=== PATIENT | female | born 1960 | race Caucasian/White ===

== ENCOUNTER 2017-07-29 17:17 | Inpatient (IN) | payer BC ==
[2017-07-29 17:48] VITALS: BMI 45.1
[2017-07-29] MEDS ORDERED: Ondansetron HCl/PF 4 MG/2 ML Vial SLOW IVP PRN ×2 (17:58→22:31)
[2017-07-29] MEDS: D5 1/2 NS w/20 mEq KCL 1,000 ML IV SCH (18:07)
[2017-07-29] MEDS: Morphine 5 MG/ML SYRINGE SLOW IVP PRN ×3 (18:08→22:14)
[2017-07-29] MEDS ORDERED: diphenhydrAMINE 50 MG/ML VIAL IM/IV PRN ×2 (19:50→22:36)
[2017-07-29] MEDS ORDERED: FLU VACC QS2017-18 36 mo. & older 0.5 ML SYRINGE IM ONE (21:00)
[2017-07-29] MEDS ORDERED: Morphine 5 MG/ML SYRINGE SLOW IVP PRN ×2 (22:34→22:35)
[2017-07-30] MEDS ORDERED: Sodium Chloride 0.9% 10 ML ONE (02:00)
[2017-07-30] MEDS: Morphine 5 MG/ML SYRINGE SLOW IVP PRN ×6 (02:05→23:48)
[2017-07-30] MEDS: D5 1/2 NS w/20 mEq KCL 1,000 ML IV SCH ×3 (02:14→18:22)
--- NOTE | 2017-07-30 06:10 | HP ---
DATE OF ADMISSION: 07/29/2017 PRIMARY CARE PHYSICIAN: Dr. Pio Crawford. CHIEF COMPLAINT: Abdominal pain. HISTORY OF PRESENT ILLNESS: This is a 57-year-old female, long time patient of Dr. Pio Crawford who had an insidious onset of generalized abdominal pain starting yesterday. She had increasi ng anorexia due to the discomfort, but no nausea. She does note having some diarrhea during the latt er part of the week. Then last night, she had sudden onset of emesis when she thought she was going to go to the bathroom and have a bowel movement, but never really had any nausea. She denies any fev er or headache, then throughout this morning the abdominal pain became more severe and it was on the left side of her abdomen radiating towards the left upper back, which reminded her of her past pancre atitis attacks. She took herself to [facility] ER, they did a workup included a CT of the abdomen, lab work and an amylase and they could not do a lipase and they found it to be positive, diagnosed with p ancreatitis and contacted us for direct admit. This is her third episode of pancreatitis. She has h ad her gallbladder worked up, it has been negative. They only found a little bit of sludge, no stone s. She has had a HIDA scan, it has been negative. PAST MEDICAL HISTORY: Positive for pancreatitis 2 other times, history of hypertension, GERD, some anxiety, depression, and morbid obesity. PAST SURGICAL HISTORY: Failed lap band she had it placed, but then in 2013, she had it removed. She has had a vaginal hysterectomy with both ovaries were left intact. ALLERGIES: She has no known drug allergies. MEDICATIONS: She is on Protonix, metoprolol, Singulair, Lexapro and Xanax. FAMILY HISTORY: Noncontributory. SOCIAL HISTORY: She is . 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 She is a past smoker for more than 10 years ago. No alcohol use, no drug use. REVIEW OF SYSTEMS: She denies any fever or chills, or headaches. No changes in vision, no trouble c hewing or swallowing. She has had no chest pain or shortness of breath, no cough. She has had no na usea. She has had some diarrhea. She had the acute emesis starting in the middle of night and has h ad a total of three bouts of emesis. No hematemesis. She denies any melena or bright red blood per rectum in her stool, no dysuria or hematuria. She denies any paresis or paresthesias. No weakness. She also denies any auditory or visual hallucinations, no suicidal or homicidal ideations. PHYSICAL EXAMINATION: GENERAL: She is awake, slightly uncomfortable trying to switch positions, and she can tell her morph ine dose is wearing off at this time, but she is very cooperative and intelligent regarding her condi tion. VITAL SIGNS: Temperature 98.2, pulse 88, respirations 20-22, satting 97% on room air, BP was 125/60. HEENT: Pupils are equal, round, and reactive to light and accommodation. Extraocular movements are intact. Mucous membranes are moist. Sclerae are nonicteric. NECK: Supple, no JVD, no bruits. LUNGS: Clear to auscultation bilaterally, no rales, rhonchi or wheezes. HEART: S1, S2, with no rubs, murmurs, or gallops. ABDOMEN: Soft, obese, mild tender to palpation in the midepigastric area. No rebound or guarding. Bowel sounds are hypoactive. GENITOURINARY: Deferred. EXTREMITIES: She has good palpable pulses in all four extremities. DTRs are 2+ and equal. NEUROLOGIC: She is alert and oriented x4. Cranial nerves II-XII are equal and symmetrical. There a re no motor or sensory deficits appreciated. LABORATORY AND X-RAY FINDINGS: [facility] lipase which was 254 . She has labs that were done at [facility] which showed a white count 11, H&H is 13 and 41 and platele ts 291, neutrophils 81%, lymphocytes 12%. Sodium was 135, potassium 3.9, chloride 99, bicarbonate 26 , BUN 16, creatinine 0.8, glucose 105. Her GGTP was 7, total bilirubin was 0.8. Her AST is 18 and A LT is 21. Her amylase was 254. They had a CT scan of her abdomen showing positive pancreatic strand ing. ASSESSMENT: Acute recurrent pancreatitis. PLAN: She will be kept n.p.o., will get IV fluids going or do some pain control. We will follow her lipase levels and her clinical course.
[2017-07-30 06:17] LABS: Band 2 % (5-11); Eosinophils 1 % (0-10); Hemoglobin 11.3 g/dL (12.0-16.0); Lymphocytes 10 % (21-51); MDiff Complete? YES; Mean Corpuscular HGB CONC 32.8 g/dL (32.0-36.0); Mean Corpuscular Hemoglobin 29.9 pg (27.0-31.0); Mean Corpuscular Volume 91.1 fl (81.0-99.0); Mean Platelet Volume 8.7 fL (7.4-10.4); Monocytes 8 % (0-10); Neutrophil 79 % (42-75); Platelet Count 226 thou/uL (130-400); RBC Distribution Width 12.4 % (11.5-14.5); Red Blood Cell (RBC) Count 3.79 mill/uL (4.20-5.40); White Blood Cell (WBC) Count 8.4 thou/uL (4.8-10.8)
[2017-07-30 06:20] LABS: ALT (SGPT) 10 U/L (8-55); AST (SGOT) 8 U/L (5-34); Albumin 3.4 g/dL (3.5-5.0); Alkaline Phosphatase 61 U/L (40-150); Anion Gap 11 mmol/L (10-20); BUN (Urea Nitrogen) 11 mg/dL (9.8-20.1); Bilirubin, Total 0.5 mg/dL (0.2-1.2); Calc. Creatinine Clearance 152 mL/min (70-130); Calcium 8.9 mg/dL (7.8-10.44); Carbon Dioxide 26 mmol/L (22-29); Cardiac Risk 2.6 (Less than 4.5); Chloride 103 mmol/L (98-107); Cholesterol 165 mg/dl (< 200 Desired); Estimated GFR-MDRD 73; Globulin 2.9 g/dL (2.4-3.5); Glucose 110 mg/dL (70-105); HDL Cholesterol 63 mg/dL (>60 Neg Risk); LDL Cholesterol, Calculated 93 mg/dL; Lipase 188 U/L (8-78); Potassium 4.6 mmol/L (3.5-5.1); Protein, Total 6.3 g/dL (6.0-8.3); Sodium 135 mmol/L (136-145); Triglycerides 46 mg/dL (Less than 150)
--- NOTE | 2017-07-30 08:13 | PRG ---
DATE OF SERVICE: 07/30/2017 Ms. Pearl is in for pancreatitis. Her lipase yesterday increased 188, she is still feeling some pain . She reports no other medical complaints. No nausea, vomiting, diarrhea, otherwise. PHYSICAL EXAMINATION: VITAL SIGNS: Temperature is 98.6, BP 102/55. LUNGS: Clear. HEART: Reveals no murmur. LABORATORY: Liver profile tests are normal, lipase remained slightly elevated. IMPRESSION: Recurrent pancreatitis. PLAN: 1. Will check a gallbladder. 2. Advance diet. 3. Possibly discharge by tomorrow.
--- NOTE | 2017-07-30 09:07 | ULT ---
RIGHT UPPER QUADRANT ULTRASOUND: INDICATIONS: Pancreatitis. COMPARISON: Prior study dated 06/19/2014. FINDINGS: The liver measured 15.9 cm in length. No focal hepatic lesion is evident. The visualized aspects of the gallbladder appear within normal limits. No sonographic Mills sign is reported. The gallbladder wall measures 3.4 mm, slightly prominent; however, the gallbladder does n ot appear fully distended. The common bile duct measures 3 mm, which is normal. The pancreas is obscured by overlying bowel gas. The right kidney measures 11.3 x 5.4 x 5.1 cm. Previously seen echogenic focus within the right mid kidney is no longer demonstrated. No hydronephrosis is evident. IMPRESSION: 1. No acute sonographic abnormality is demonstrated. 2. Nonvisualization of the pancreas. POS: [facility]
[2017-07-31] MEDS: Morphine 5 MG/ML SYRINGE SLOW IVP PRN (04:13)
[2017-07-31] MEDS: D5 1/2 NS w/20 mEq KCL 1,000 ML IV SCH ×2 (04:14→11:11)
[2017-07-31 07:25] VITALS: BP 117/67; TEMP 98.7
--- NOTE | 2017-07-31 08:05 | PRG ---
DATE OF SERVICE: 07/31/2017 Ms. Pearl is feeling better. She is still complaining of some left upper quadrant pain. She has not experienced any nausea or vomiting. PHYSICAL EXAMINATION: VITAL SIGNS: BP 117/67, temperature 98.7. LUNGS: Clear. ABDOMEN: Soft, mild left upper quadrant tenderness without evidence of rebound or guarding. Abdominal ultrasound showed no evidence of pancreatic or gallbladder abnormalities. LABORATORY: Lipase is 90 today. IMPRESSION: Pancreatitis of unknown etiology. PLAN: Will advance diet, if she is able to tolerate the advance diet she will be discharged later th is afternoon to follow up with me in 1 week for further evaluation.
[2017-07-31] MEDS ORDERED: traMADol HCl 50 MG TAB PO SCH (12:30)
== END 2017-07-31 13:38 | disposition home or self-care (01) | DRG 439 ==
LOC: 3SE 17:25
PROVIDERS: ADMIT Family Medicine; ATTEND Family Medicine
DX: K85.90 Acute pancreatitis without necrosis or infection, unspecified (principal); Z68.42 Body mass index [BMI] 45.0-49.9, adult; E66.01 Morbid (severe) obesity due to excess calories; K86.1 Other chronic pancreatitis; I10 Essential (primary) hypertension; K21.9 Gastro-esophageal reflux disease without esophagitis; F41.9 Anxiety disorder, unspecified; F32.9 Major depressive disorder, single episode, unspecified; Z79.899 Other long term (current) drug therapy
CPT/HCPCS: 36415; 76705; 80053; 80061; 83690; 85007; 85027; J2270; A4216; J1200; J2405

== ENCOUNTER 2017-09-18 10:07 | Outpatient (CLI) | payer BC ==
[2017-09-18 11:41] LABS: #Eosinphils 0.1 thou/uL (0.0-0.7); #Lymphocytes 1.2 thou/uL (1.20-3.40); #Monocytes 0.4 thou/uL (0.11-0.59); #Neutrophils 3.8 thou/uL (1.40-6.50); %Basophils 0.7 % (0.0-1.0); %Eosinophils 1.9 % (0.0-10.0); %Lymphocytes 22.2 % (21.0-51.0); %Monocytes 7.2 % (0.0-10.0); Hemoglobin 12.5 g/dL (12.0-16.0); Mean Corpuscular HGB CONC 32.9 g/dL (32.0-36.0); Mean Corpuscular Hemoglobin 29.3 pg (27.0-31.0); Mean Corpuscular Volume 89.1 fl (81.0-99.0); Mean Platelet Volume 8.5 fL (7.4-10.4); Platelet Count 259 thou/uL (130-400); RBC Distribution Width 12.6 % (11.5-14.5); Red Blood Cell (RBC) Count 4.28 mill/uL (4.20-5.40); White Blood Cell (WBC) Count 5.5 thou/uL (4.8-10.8)
[2017-09-18 12:02] LABS: ALT (SGPT) 13 U/L (8-55); AST (SGOT) 13 U/L (5-34); Alkaline Phosphatase 71 U/L (40-150); Anion Gap 10 mmol/L (10-20); BUN (Urea Nitrogen) 13 mg/dL (9.8-20.1); Bilirubin, Direct 0.2 mg/dL (0.1-0.3); Bilirubin, Total 0.5 mg/dL (0.2-1.2); Calc. Creatinine Clearance 0 mL/min (70-130); Calcium 9.5 mg/dL (7.8-10.44); Carbon Dioxide 29 mmol/L (22-29); Chloride 103 mmol/L (98-107); Estimated GFR-MDRD 72; Glucose 92 mg/dL (70-105); Potassium 4.1 mmol/L (3.5-5.1); Protein, Total 7.1 g/dL (6.0-8.3); Sodium 138 mmol/L (136-145)
== END 2017-09-18 10:08 | disposition home or self-care (01) ==
LOC: LABBT 10:07
PROVIDERS: ATTEND Surgery
DX: Z01.812 Encounter for preprocedural laboratory examination (principal); K86.1 Other chronic pancreatitis
CPT/HCPCS: 80048; 80076; 85025; 93005; 93010

== ENCOUNTER 2017-09-26 11:53 | Day surgery (SDC) | payer BC ==
[2017-09-18 10:49] VITALS: BMI 43.5
[2017-09-26] MEDS ORDERED: Bupivacaine/Epinephrine 0.25% 30 ML VIAL ONE (12:51)
[2017-09-26] MEDS ORDERED: Iothalamate Meglumine 60% 50 ML VIAL FS ONE (12:51)
[2017-09-26] MEDS ORDERED: Glycopyrrolate 0.2 MG/ML 5 ML SYRINGE ONE (12:58)
[2017-09-26] MEDS ORDERED: Dexamethasone 20 MG/5 ML VIAL ONE (12:58)
[2017-09-26] MEDS ORDERED: Propofol 200 MG/20 ML VIAL ONE (12:58)
[2017-09-26] MEDS ORDERED: Ketorolac Tromethamine 30 MG/ML VIAL ONE (12:58)
[2017-09-26] MEDS ORDERED: Lidocaine 1% PF 5 ML VIAL ONE (12:58)
[2017-09-26] MEDS ORDERED: Ondansetron HCl/PF 4 MG/2 ML Vial ONE (12:58)
[2017-09-26] MEDS ORDERED: Fentanyl 100 MCG/2 ML VIAL ONE ×3 (13:08→15:41)
[2017-09-26] MEDS ORDERED: CEFAZOLIN/Water 2 GM/20 ML SYRINGE ONE (13:50)
[2017-09-26] MEDS ORDERED: Promethazine HCl 25 MG/ML VIAL ONE (15:04)
--- NOTE | 2017-09-26 16:40 | RAD ---
INTRAOPERATIVE CHOLANGIOGRAM: Date: 09-26-17 History: Post cholecystectomy. FINDINGS: Two intraoperative fluoroscopic images of the right upper quadrant from intraoperative cholangiogram are submitted for interpretation. Multiple surgical instruments overlie the right upper quadrant. The cystic duct is cannulated and there is opacification of the intra and extra hepatic bile ducts. The visualized intrahepatic as well as extrahepatic bowel ducts are normal in caliber and there is no per sistent filling defect seen. There is partial visualization of contrast in the small bowel suggesting free spill of contrast into the small bowel. No filling defect is seen in this region although the m ost distal common duct is difficult to evaluate. Surgical clips overlie the right upper quadrant. IMPRESSION: No intrahepatic or extrahepatic biliary ductal dilatation. No persistent filling defect is seen withi n the intra or extrahepatic bile ducts. Correlation with intraoperative findings is recommended. POS: [facility]
--- NOTE | 2017-09-27 14:35 | OP ---
DATE OF PROCEDURE: 09/26/2017 PREOPERATIVE DIAGNOSIS: History of chronic pancreatitis. POSTOPERATIVE DIAGNOSIS: History of chronic pancreatitis. PROCEDURE: Laparoscopic cholecystectomy with intraoperative cholangiogram. SURGEON: Dr. Villalta. ANESTHESIA: General. ESTIMATED BLOOD LOSS: Minimal. COMPLICATIONS: None. SPECIMEN: Gallbladder. FINDINGS: Normal cholangiogram. TECHNIQUE: The patient was taken to the operating room and placed supine on the table. After genera l anesthetic was obtained, the abdomen was prepped and draped in a sterile fashion. Curved incision made below the umbilicus. Cautery used to dissect down to and score the fascia. Abdominal cavity wa s entered bluntly using a Latanya clamp. Camp trocar was placed. High-flow pneumoperitoneum was obt ained. Upper midline 5 mm port and 2 right upper quadrant 5 mm ports were placed under direct visual ization. The gallbladder was retracted from the gallbladder fossa. The peritoneum was opened anteri kim and posteriorly. The critical view triangle was seen showing only the cystic duct and cystic ar nubia branching from medial to lateral. No other branching structures. A clip was placed high on the cystic duct. A small ductotomy was made just proximal to that. A cholangiocatheter was brought in through a separate stab incision and placed in the cystic duct and a cholangiogram was performed, whi ch shows good contrast flow into the duodenum, right and left hepatic duct system, without evidence o f obstruction. Cholangiocatheter was removed. Two clips were placed proximally on the cystic duct a nd was cut using laparoscopic scissors. The cystic artery was taken using 2 clips proximally and 1 c lip distally, and cut using laparoscopic scissors. Cautery was used to dissect the gallbladder out o f the gallbladder fossa. Gallbladder was placed in an Endo catch bag and brought out through the Has son. All port sites were infiltrated using local anesthetic. There is no bleeding in the liver bed. All ports were removed under camera visualization. Pneumoperitoneum was let down. PDS used to mirela se the fascial defect below the umbilicus. All incisions were irrigated and closed using 4-0 Monocry l and Dermabond. The patient was en route to recovery in stable condition. All instrument counts, n eedle counts, lap counts are correct.
== END 2017-09-26 17:55 | disposition home or self-care (01) ==
LOC: SDC 11:53
PROVIDERS: ATTEND Surgery
PROC: 0FT44ZZ Resection of Gallbladder, Percutaneous Endoscopic Approach (ICD-10-PCS; principal; 2017-09-26)
PROC: BF101ZZ Fluoroscopy of Bile Ducts using Low Osmolar Contrast (ICD-10-PCS; principal; 2017-09-26)
DX: K81.1 Chronic cholecystitis (principal); K86.1 Other chronic pancreatitis; I10 Essential (primary) hypertension; K21.9 Gastro-esophageal reflux disease without esophagitis; M19.90 Unspecified osteoarthritis, unspecified site; Z87.891 Personal history of nicotine dependence; Z79.899 Other long term (current) drug therapy; Z88.1 Allergy status to other antibiotic agents
CPT/HCPCS: 47532; 88304; 96374; J1100; J1885; J2001; J2405; J2550; J2704; J3010; Q9961

== ENCOUNTER 2018-07-22 12:30 | Inpatient (IN) | payer BC ==
[2018-07-22] MEDS ORDERED: Ondansetron PF 4 MG/2 ML Vial ONE (13:05)
[2018-07-22] MEDS ORDERED: Ketorolac Tromethamine 30 MG/ML VIAL ONE (13:05)
[2018-07-22 13:22] LABS: Band 2 % (5-11); Hemoglobin 13.8 g/dL (12.0-16.0); Lymphocytes 10 % (21-51); MDiff Complete? YES; Mean Corpuscular HGB CONC 33.4 g/dL (32.0-36.0); Mean Corpuscular Hemoglobin 28.8 pg (27.0-31.0); Mean Corpuscular Volume 86.5 fL (78.0-98.0); Mean Platelet Volume 10.5 fL (7.4-10.4); Monocytes 5 % (0-10); Neutrophil 83 % (42-75); Platelet Count 250 thou/uL (130-400); Platelet Morphology Comment Appears Adequate; RBC Distribution Width 13.5 % (11.5-14.5); RBC Morphology Normal; Red Blood Cell (RBC) Count 4.77 mill/uL (4.20-5.40)
[2018-07-22 13:23] LABS: ALT (SGPT) 16 U/L (8-55); AST (SGOT) 13 U/L (5-34); Albumin 4.3 g/dL (3.5-5.0); Alkaline Phosphatase 81 U/L (40-150); Anion Gap 15 mmol/L (10-20); BUN (Urea Nitrogen) 15 mg/dL (9.8-20.1); Bilirubin, Total 0.9 mg/dL (0.2-1.2); Calc. Creatinine Clearance 0 mL/min (70-130); Calcium 9.9 mg/dL (7.8-10.44); Carbon Dioxide 24 mmol/L (22-29); Chloride 102 mmol/L (98-107); Estimated GFR-MDRD 73; Globulin 3.5 g/dL (2.4-3.5); Glucose 115 mg/dL (70-105); Lipase 16 U/L (8-78); Potassium 3.9 mmol/L (3.5-5.1); Protein, Total 7.8 g/dL (6.0-8.3); Sodium 137 mmol/L (136-145)
[2018-07-22] MEDS ORDERED: Morphine 4 MG/ML VIAL ONE ×2 (13:37→14:23)
[2018-07-22] MEDS ORDERED: D5 1/2 NS w/20 mEq KCL 1,000 ML ONE (14:24)
--- NOTE | 2018-07-22 14:57 | CT ---
CT ABDOMEN AND PELVIS WITHOUT CONTRAST: Date: 07/22/18 HISTORY: Right-sided flank pain, mid and lower abdominal pain radiating to the left abdominal side and to back . FINDINGS: The lung bases are clear. Absence of oral and IV contrast reduces the sensitivity of exam, particular ly for evaluation of solid organs and bowel. There are postop changes of cholecystectomy and surgery at the GE junction. A small hiatal hernia is present. No free air or free fluid is seen in the abdomen or pelvis. No calculi noted in the kidneys, ureters, or the urinary bladder. No hydroureteronephrosis seen on either side. There is no evidence of aneurysmal dilatation of the abdominal aorta. There is peripancreatic inflammatory change consistent with pancreatitis. There is a 1.0 cm right adr enal and 1.5 cm left adrenal nodule with attenuation values less than 10, consistent with benign basia omas. A normal appearing appendix is present. There are degenerative changes in the spine. The patie nt is post hysterectomy. IMPRESSION: 1. No CT evidence of urinary tract calculi or obstruction. 2. Bilateral adrenal adenomas. 3. Pancreatitis. POS: [facility]
[2018-07-22] MEDS ORDERED: diphenhydrAMINE 50 MG/ML VIAL ONE (15:55)
[2018-07-22 16:42] VITALS: BMI 45.1
[2018-07-22] MEDS ORDERED: Ondansetron PF 4 MG/2 ML Vial IVP PRN (17:15)
[2018-07-22] MEDS ORDERED: Ketorolac Tromethamine 30 MG/ML VIAL IVP PRN (17:17)
[2018-07-22] MEDS ORDERED: Morphine 4 MG/ML VIAL SLOW IVP PRN (17:18)
[2018-07-22] MEDS ORDERED: Sodium Chloride 0.9% 1,000 ML IV SCH (17:45)
[2018-07-22] MEDS: D5 1/2 NS w/20 mEq KCL 1,000 ML IV SCH ×2 (18:03→21:11)
[2018-07-22] MEDS: Morphine 2 MG/ML SYRINGE SLOW IVP PRN ×2 (18:32→22:35)
--- NOTE | 2018-07-22 19:24 | HP ---
HISTORY OF PRESENT ILLNESS: The patient is a 58-year-old female, who presents to the emergency room complaining of severe right upper quadrant pain noting symptoms since yesterday was started with upper back pain. She had previous history of recurrent pancreatitis of unknown etiology. She has undergone cholecystectomy in previous years. She denies any ethanol use or abuse. She noted onset of pain in the upper back yesterday, which became progressively worse. She has not noted any fever. She has noted one episode of vomiting and one episode of diarrhea. No blood per bowel movement. She has had multiple episodes of this and has been hospitalized at [facility] at least two times in the last year. No etiology of her pancreatitis has been identified. This has been treated with a low-fat diet as well as abstinence from ethanol, which she does not drink much anyway. Otherwise, no other medical complaints. She was seen and evaluated in the ER. CAT scan did reveal findings consistent with pancreatitis with no masses or lesions otherwise noted. Lab was otherwise unremarkable. Currently, she is feeling a little bit better at this time. ALLERGIES: SHE HAS NO KNOWN ALLERGIES. CURRENT MEDICATIONS: 1. Metoprolol 25 mg daily. 2. Alprazolam 0.5 mg one tablet p.o. b.i.d. 3. Citalopram 10 mg daily. 4. Montelukast 10 mg daily. 5. Hydrochlorothiazide 25 mg daily. PAST SURGICAL HISTORY: Positive for cholecystectomy as well as lap band with lap band reversal as well as hysterectomy. PAST MEDICAL HISTORY: Positive for hypertension, gastroesophageal reflux disease as well as the above-noted pancreatitis. SOCIAL AND PERSONAL HISTORY: She occasionally uses tobacco. Does not smoke. Does not drink at this time. FAMILY HISTORY: Father with atherosclerotic coronary artery disease. REVIEW OF SYSTEMS: GI: Positive as above. : Negative. CARDIOVASCULAR: Otherwise negative. RESPIRATORY: Otherwise negative. NEUROLOGIC: Negative. PHYSICAL EXAMINATION: VITAL SIGNS: Temperature 98.6, pulse 69, respirations 16, O2 saturation 98% on room air, blood pressure 170/78. GENERAL: She is alert, active, does not appear in any distress. HEENT: Normocephalic and atraumatic. Sclerae and conjunctivae clear. NECK: Supple. Full range of motion. No masses. No bruits are auscultated. Thyroid is midline. No thyromegaly or thyroid masses. LUNGS: Clear. HEART: Reveals a regular rate and rhythm. No murmurs, gallops, or rubs. ABDOMEN: Soft. There is no evidence of rebound or guarding. Bowel sounds are present and active. No hepatosplenomegaly is otherwise noted. EXTREMITIES: No clubbing, edema, or cyanosis. Pulses are full and equal throughout the exam. SKIN: Shows no skin lesions or rashes otherwise noted. LABORATORY DATA: White blood count 11.0, hemoglobin 13.8, hematocrit 41.2. Sodium 137, potassium 3.9, chloride 102, CO2 of 24, BUN 15, creatinine 0.8. Liver function tests are otherwise normal. IMPRESSION: A 58-year-old female with recurrent episodes of pancreatitis. PLAN: She will be placed in n.p.o. status. Start IV fluids. We will get GI consult. She will have pain medicines administered through the night. Further treatment will be dictated by GI consult as well as possible EGD. Job ID: [id number]
--- NOTE | 2018-07-23 00:38 | CON ---
DATE OF CONSULTATION: 07/22/2018 REASON FOR CONSULT: History of recurrent pancreatitis. HISTORY OF PRESENT ILLNESS: Ms. Pearl is a 58-year-old female who was admitted via [facility] for what is felt to be recurrent pancreatitis. She reports that she began having pain on Sunday, which was mild and then became more severe yesterday, and then this morning it was so severe when she woke up, she had to come to the emergency room. The pain was 1st in the back and then migrated to her epigastric area, very similar to prior episodes at which time, she has been diagnosed with pancreatitis. It seems this has occurred mainly at [facility]. She states this probably began around the time that her Lap-Band was removed. In 2013, she had a slipped Lap-Band and they thought that what was causing her pain, but her symptoms really did not go away after that, at least subsequently she notes today. I was not taking care of her at that time. In any event, she had ultrasounds along the way, which were negative, cardiac evaluations, which were negative and had a HIDA scan in 01/2017, which was normal with a normal gallbladder ejection fraction. Ultimately, she underwent a laparoscopic cholecystectomy in 09/2017 with normal IOC and a normal gallbladder. That surgery was performed in 09/2017. The patient denies being drinking heavily in the past or presently. She has no family history of pancreatitis. Though she has been here several times with this, but reviewing her records, she has had minimal lipase elevations here since 2012, the highest was 254 in 07/2017, dropping to 90 on 08/20/2017. She had a mild elevation in 2014 and 11/2015. Her lipase today is normal at 16. She states the pain is worse it has ever been. She did respond to some IV pain medicine. She received a L of fluid here in the emergency room. As far as further GI evaluation, she was seen by Dr. Montero in 2013 when she was here in the hospital for this pain. It was felt possibly reflux-related or related to the Lap-Band the Lap-Band was removed. Maybe before that she had been seeing myself or Dr. Cortes for screening colonoscopy, she does not recall and I have to look at the old chart. I did not to see her in our office since that time. She reports that she has been going to [facility] Emergency Room more recently. PAST MEDICAL HISTORY: Reflux, hypertension. PAST SURGERY: Lap-Band removal in 01/2014, cholecystectomy in 2018. SOCIAL HISTORY: The patient does smoke. She does not use drugs. She does not drink alcohol. FAMILY HISTORY: Negative for colon cancer or liver disease. Positive for coronary artery disease. Negative for pancreatic disease. ALLERGIES: NONE KNOWN. CURRENT MEDICATIONS: 1. Metoprolol. 2. Alprazolam. 3. Hydrochlorothiazide. 4. Escitalopram. 5. Montelukast. 6. Toradol. 7. Morphine. 8. Zofran. 9. D5 half-normal with 20 K at 125 an hour. REVIEW OF SYSTEMS: The patient denies any history of hyperlipidemia, abdominal trauma, previous abdominal surgeries that could have caused pancreatitis. No family history of cystic fibrosis. PHYSICAL EXAMINATION: VITAL SIGNS: In the ER, blood pressure is 124/67, pulse 69, temperature 97. GENERAL: She is resting comfortably on bed. She has a friend at the bedside. She is overweight. LUNGS: Clear. HEART: Regular rate and rhythm without rubs or murmurs. ABDOMEN: Soft, nontender without rebound or guarding. There is very mild epigastric tenderness now. Lower abdomen is nontender. EXTREMITIES: No clubbing, cyanosis, or edema. LABORATORY DATA: White count was 11, hemoglobin is 13.8, platelet count 250. Comprehensive metabolic profile normal. Glucose 115, lipase is 16. A CAT scan of the abdomen and pelvis was done that showed hiatal hernia, cholecystectomy, some peripancreatic inflammation. No signs of pancreatic necrosis. RECOMMENDATIONS: [employer] her a L of fluid now then increase fluids to 250 an hour. It is unclear if this is truly pancreatitis she has had some component of chronic pancreatitis since there is not any evidence of macroscopic on CT. We would perform an EGD tomorrow to make sure there is no type of other upper GI tract abnormality causing the abnormalities in the pancreas. If this is normal, it may be reasonable to stop her hydrochlorothiazide and check markers for autoimmune pancreatitis and get a referral for an outpatient endoscopic ultrasound of the pancreas. Job ID: [id number]
[2018-07-23] MEDS: Morphine 4 MG/ML VIAL SLOW IVP PRN ×5 (02:47→17:52)
[2018-07-23] MEDS: D5 1/2 NS w/20 mEq KCL 1,000 ML IV SCH ×3 (04:48→17:54)
[2018-07-23] MEDS ORDERED: Morphine 2 MG/ML SYRINGE ONE (12:46)
[2018-07-23] MEDS ORDERED: PROPOFOL 200 MG/20 ML VIAL ONE (15:43)
[2018-07-23] MEDS ORDERED: Lidocaine 1% PF 5 ML VIAL ONE (15:43)
--- NOTE | 2018-07-23 19:19 | OP ---
DATE OF PROCEDURE: 07/23/2018 PROCEDURE PERFORMED: Esophagogastroduodenoscopy. PREOPERATIVE DIAGNOSIS: Epigastric abdominal pain. She has inflammatory changes around the pancreas by CT scan. The pancreatic enzymes; however, have not been significantly elevated and esophagogastroduodenoscopy is performed to rule out peptic ulcer as a source for the inflammatory changes noted by CT and to rule out alternative cause of the epigastric pain. DESCRIPTION OF PROCEDURE: Informed consent was obtained from the patient. She was sedated with total intravenous anesthesia. The bite block was placed and the endoscope was advanced easily to the second portion of the duodenum and retroflexion was performed in the stomach. The esophagus was normal. The GE junction was normal. Stomach was normal including retroflexed views. The pylorus and first and second portions of the duodenum were normal. IMPRESSION: Normal esophagogastroduodenoscopy. RECOMMENDATIONS: Advance to clear liquids when she can tolerate oral intake. Job ID: [id number]
[2018-07-23] MEDS ORDERED: Morphine 4 MG/ML VIAL SLOW IVP PRN (20:21)
[2018-07-23] MEDS ORDERED: Ondansetron PF 4 MG/2 ML Vial IVP PRN (20:21)
--- NOTE | 2018-07-24 00:43 | CON ---
DATE OF CONSULTATION: 07/23/2018 SUBJECTIVE: Ms. Pearl is about to undergo EGD performed by Dr. Cortes. She is still complaining of intestinal bloating, some nausea, but no vomiting. Some abdominal pain. PHYSICAL EXAMINATION: Her abdomen is protuberant. Bowel sounds are present, but diminished somewhat. There is no hepatosplenomegaly noted. IMPRESSION: Pancreatitis. PLAN: Await the results of EGD. Job ID: [id number]
[2018-07-24] MEDS: D5 1/2 NS w/20 mEq KCL 1,000 ML IV SCH ×3 (00:59→11:22)
[2018-07-24] MEDS: Morphine 2 MG/ML SYRINGE SLOW IVP PRN ×3 (01:27→21:07)
[2018-07-24] MEDS ORDERED: Morphine 4 MG/ML VIAL SLOW IVP PRN (03:30)
--- NOTE | 2018-07-24 10:06 | PRG ---
DATE OF SERVICE: 07/24/2018 SUBJECTIVE: Ms. Pearl is feeling little bit better. She notes less pain. She still is n.p.o. at this time, although she has had a clear liquids ordered. OBJECTIVE: VITAL SIGNS: Temperature 99.0 and blood pressure 150/72. ABDOMEN: Soft. There is no tenderness noted. Bowel sounds are present and active. IMPRESSION: Pancreatitis. PLAN: 1. Start clear liquids, decrease IV fluids. 2. If she is stable and tolerating p.o. intake by tomorrow morning, she can be discharged. We will recheck labs in a.m. Job ID: [id number]
[2018-07-24 16:23] LABS: ANA Symphony (Qualitative) Negative (Negative); ANA Symphony (Quantitative) Less than 0.1 Ratio (< 0.7 Negative); dsDNA IgG Antibody Less than 0.5 IU/mL (<10 Negative)
--- NOTE | 2018-07-24 18:21 | PRG ---
DATE OF SERVICE: 07/24/2018 SUBJECTIVE: Ms. Pearl notes she is feeling better. She started on some clear liquids. She did have morphine twice today. She is on IV fluid at 15 hour morphine IV q.4 hours p.r.n. for pain. OBJECTIVE: VITAL SIGNS: Temperature is 99 to 98.7, pulse 75, blood pressure 120/76. LUNGS: Clear. HEART: Regular rate and rhythm without clicks or murmurs. ABDOMEN: Soft. There is no tenderness or rebound. There is no guarding. LABS: None. CHAS was negative. ASSESSMENT: 1. Abdominal pain with pancreatic inflammation on CAT scan, but normal lipase on admission. 2. Episodes over the past several years where she has had some pain like this, some mild elevation of lipase, once here at this hospital. Apparently, she has been seen several times at [facility] and treated for this. She has not followed up with me in the office in several years. It appears that she is having episodes of pancreatitis that could be acute on chronic. The etiology is really unclear. She has had a cholecystectomy. Evaluations for IgG subclass for autoimmune pancreatitis are pending, but CHAS has been negative. She seems to be improving with no signs of pancreatic necrosis or complications. She does not drink alcohol. RECOMMENDATIONS: 1. I told her that she is needing to use pain medicine, she should not be eating. I have recommended she try to wean off the IV pain medications and hopefully we will advance to full liquids. We will check labs tomorrow in the outpatient setting if there is no signs of IgG subclass for elevation to indicate autoimmune pancreatitis. She will need to be referred for an endoscopic ultrasound. 2. I think it would also be helpful for her to have a pancreatic enzyme replacement therapy when she goes home and again a low-fat diet. Job ID: [id number]
[2018-07-25] MEDS: D5 1/2 NS w/20 mEq KCL 1,000 ML IV SCH (04:35)
[2018-07-25 07:52] LABS: #Eosinphils 0.1 thou/uL (0.0-0.7); #Lymphocytes 0.8 thou/uL (1.20-3.40); #Monocytes 0.5 thou/uL (0.11-0.59); #Neutrophils 3.7 thou/uL (1.40-6.50); %Eosinophils 2.6 % (0.0-10.0); %Lymphocytes 15.8 % (21.0-51.0); %Monocytes 9.8 % (0.0-10.0); %Neutrophils 71.7 % (42.0-75.0); Hemoglobin 11.3 g/dL (12.0-16.0); Mean Corpuscular HGB CONC 32.3 g/dL (32.0-36.0); Mean Corpuscular Hemoglobin 29.3 pg (27.0-31.0); Mean Corpuscular Volume 90.5 fL (78.0-98.0); Mean Platelet Volume 9.5 fL (7.4-10.4); Platelet Count 229 thou/uL (130-400); Red Blood Cell (RBC) Count 3.87 mill/uL (4.20-5.40); White Blood Cell (WBC) Count 5.1 thou/uL (4.8-10.8)
[2018-07-25 08:10] LABS: Anion Gap 12 mmol/L (10-20); BUN (Urea Nitrogen) 8 mg/dL (9.8-20.1); Calc. Creatinine Clearance 176 mL/min (70-130); Calcium 9.4 mg/dL (7.8-10.44); Carbon Dioxide 24 mmol/L (22-29); Chloride 104 mmol/L (98-107); Estimated GFR-MDRD 87; Glucose 92 mg/dL (70-105); Lipase 38 U/L (8-78); Potassium 3.7 mmol/L (3.5-5.1); Sodium 136 mmol/L (136-145)
--- NOTE | 2018-07-25 09:37 | PRG ---
DATE OF SERVICE: 07/25/2018 SUBJECTIVE: Ms. Pearl noted that she started having some more abdominal pain when she tried to eat solid food yesterday. Did not note any vomiting. She did request morphine. LABORATORY DATA: All immunology screens were normal and negative. OBJECTIVE: VITAL SIGNS: Blood pressure 144/85 and temperature 98.3. LUNGS: Clear. HEART: Reveals no murmur. ABDOMEN: Soft. Bowel sounds are present and active. IMPRESSION: Pancreatitis. PLAN: I have asked to go ahead and restart trying to increase her diet today. See what happens if she tries some solid food. I will contact Dr. Wills to see if she needs a pancreatic enzyme supplementation. Hopefully, the patient can be discharged later today or even early tomorrow morning. Job ID: [id number]
[2018-07-25] MEDS ORDERED: traMADol HCl 50 MG TAB PO PRN (16:24)
--- NOTE | 2018-07-25 16:46 | PRG ---
DATE OF SERVICE: 07/25/2018 SUBJECTIVE: Ms. Pearl notes that today she is doing well. She is tolerating clears without any pain. She has had no pain medicine. The nurse reports yesterday she had to stop eating because she started having pain again. OBJECTIVE: VITAL SIGNS: Pulse 98, temperature , blood pressure 137/73. LUNGS: Clear. ABDOMEN: Protuberant. She is overweight. She is in bed. EXTREMITIES: No clubbing, cyanosis, or edema. LABORATORY STUDIES: White count 5.1, hemoglobin 11.3, and platelet count 229. Lipase is 38 workup negative, although IgG subclass 4 is pending. ASSESSMENT: Pancreatitis, unclear etiology. RECOMMENDATIONS: Advance diet, full liquids. Start pancreatic enzymes. Stop IV fluids and IV narcotic pain medicine as she continues to do well. Hopefully, she can have a low-fat diet tomorrow and go home. Job ID: [id number]
[2018-07-25] MEDS ORDERED: Pancrelipase DR 12000 1 CAP PO SCH (17:00)
[2018-07-26 07:41] VITALS: TEMP 98.3
--- NOTE | 2018-07-26 07:41 | PRG ---
DATE OF SERVICE: 07/26/2018 SUBJECTIVE: Ms. Pearl tolerated p.o. intake well. She wishes to go home. OBJECTIVE: VITAL SIGNS: Temperature is 98.6, blood pressure 146/90. LUNGS: Clear. HEART: Reveals no murmur. ABDOMEN: Soft and nontender. Bowel sounds are present and active. No hepatosplenomegaly is noted. IMPRESSION: Pancreatitis, now improved. PLAN: She will be discharged home today. Job ID: [id number]
--- NOTE | 2018-07-26 08:25 | DIS ---
DATE OF ADMISSION: 07/22/2018 DATE OF DISCHARGE: 07/26/2018 DISCHARGE DIAGNOSIS: Pancreatitis. HOSPITAL COURSE: The patient is a 58-year-old female with previous history of recurrent pancreatitis, admitted to the hospital with recurrent abdominal pain. She does not have elevated amylase and lipase. CT scan revealed inflamed pancreas. She was admitted to the hospital and placed on n.p.o. status. IV pain medicine. She underwent EGD, which was unremarkable. She was placed on progressive diet with Pancreas supplementation. She tolerated all p.o. intake. She was discharged home on her home medications as well as Creon 12,000 units 4 tablets p.o. t.i.d. with meals. She will follow up with me in 3 weeks. Job ID: [id number]
[2018-07-26 09:34] VITALS: BP 131/83
== END 2018-07-26 09:37 | disposition home or self-care (01) | DRG 440 ==
LOC: SCSER 12:30 → T4-B 16:30
PROVIDERS: ADMIT Family Medicine; ATTEND Family Medicine
PROC: 0DJ08ZZ Inspection of Upper Intestinal Tract, Via Natural or Artificial Opening Endoscopic (ICD-10-PCS; principal; 2018-07-23)
DX: K86.1 Other chronic pancreatitis (principal); K21.9 Gastro-esophageal reflux disease without esophagitis; I10 Essential (primary) hypertension
CPT/HCPCS: 36415; 74176; 80048; 80053; 82787; 83690; 85025; 86038; 86225; 93005; 96361; 96374; 96375; 96376; J1200; J1885; J2001; J2270; J2405; J2704

== ENCOUNTER 2018-09-27 09:51 | Observation (INO) | payer BC ==
[2018-09-27] MEDS ORDERED: Ondansetron PF 4 MG/2 ML Vial ONE ×2 (10:18→11:52)
[2018-09-27] MEDS ORDERED: Morphine 4 MG/ML VIAL ONE (10:41)
[2018-09-27 10:50] LABS: Hemoglobin 13.6 g/dL (12.0-16.0); Mean Corpuscular HGB CONC 32.2 g/dL (32.0-36.0); Mean Corpuscular Hemoglobin 28.2 pg (27.0-31.0); Mean Corpuscular Volume 87.9 fL (78.0-98.0); Mean Platelet Volume 10.1 fL (7.4-10.4); Platelet Count 236 thou/uL (130-400); RBC Distribution Width 12.3 % (11.5-14.5); Red Blood Cell (RBC) Count 4.82 mill/uL (4.20-5.40); White Blood Cell (WBC) Count 10.3 thou/uL (4.8-10.8)
[2018-09-27 10:55] LABS: ALT (SGPT) 12 U/L (8-55); AST (SGOT) 13 U/L (5-34); Albumin 4.2 g/dL (3.5-5.0); Alkaline Phosphatase 75 U/L (40-150); Anion Gap 18 mmol/L (10-20); BUN (Urea Nitrogen) 14 mg/dL (9.8-20.1); Bilirubin, Total 0.7 mg/dL (0.2-1.2); Calc. Creatinine Clearance 0 mL/min (70-130); Carbon Dioxide 20 mmol/L (22-29); Chloride 102 mmol/L (98-107); Estimated GFR-MDRD 72; Globulin 3.1 g/dL (2.4-3.5); Glucose 104 mg/dL (70-105); Lipase 256 U/L (8-78); Potassium 4.3 mmol/L (3.5-5.1); Protein, Total 7.3 g/dL (6.0-8.3); Sodium 136 mmol/L (136-145)
[2018-09-27 11:02] LABS: Band 1 % (5-11); Lymphocytes 11 % (21-51); MDiff Complete? YES; Monocytes 2 % (0-10); Neutrophil 86 % (42-75); Platelet Morphology Comment Appears Adequate; RBC Morphology Normal
--- NOTE | 2018-09-27 13:01 | CT ---
CT ABDOMEN AND PELVIS WITH CONTRAST: HISTORY: Abdominal pain. COMPARISON: CT abdomen and pelvis stone protocol 07/22/2018. FINDINGS: Mild atelectasis of lung bases. No pericardial effusion. Prior cholecystectomy. Mild peripancreatic inflammation with small volume fluid in the anterior perirenal space. The evaluation for necrosis is limited given that this is a delayed phase of contrast as there is con trast already within the ureters, urinary bladder, and renal collecting systems, although no necrosis is suspected. No intrahepatic or extrahepatic biliary dilatation. The spleen is unremarkable. Normal proximal small bowel rotation. No splenic artery aneurysm is appreciated. There are no dilated loops of large or small bowel. The appendix is visualized and is normal. Mild facet arthrosis lower lumbar spine. IMPRESSION: 1. Uncomplicated acute edematous pancreatitis. 2. Similar appearance of what was stated as prior bilateral adrenal adenomas. POS: C
[2018-09-27] MEDS ORDERED: Iopamidol 370 76% 100 ML VIAL ONE (15:07)
[2018-09-27] MEDS ORDERED: Ondansetron PF 4 MG/2 ML Vial IVP PRN (15:24)
[2018-09-27] MEDS ORDERED: Morphine 2 MG/ML SYRINGE SLOW IVP PRN (15:25)
[2018-09-27] MEDS ORDERED: Dextrose 5 %-0.45 % NaCl 1,000 ML IV SCH (15:30)
[2018-09-27] MEDS ORDERED: HYDROcodone/Acetaminophen 7.5/325 mg Tablet PO PRN (17:26)
[2018-09-27] MEDS ORDERED: Zolpidem Tartrate 5 MG TAB PO PRN (17:26)
[2018-09-27] MEDS: Morphine 4 MG/ML VIAL SLOW IVP PRN (17:52)
[2018-09-27] MEDS: Sodium Chloride 0.9% 1,000 ML IV SCH ×2 (18:00→20:39)
[2018-09-27] MEDS: Famotidine/PF 20 mg/2ml Vial SLOW IVP SCH (20:35)
[2018-09-27] MEDS: Acetaminophen 325 MG TAB PO PRN (20:37)
--- NOTE | 2018-09-27 22:26 | HP ---
HISTORY OF PRESENT ILLNESS: This is a 58-year-old white female with history of recurrent pancreatitis, who presents with abdominal pain. Two days ago, the patient was doing yard work without difficulty. Then yesterday morning, the patient developed acute onset of abdominal pain radiating to her back. This was associated with nausea, vomiting, and decreased appetite. She had attempted to work through this with [email or web address], but was unsuccessful. She continued to get worse. No reported fever. She is followed by Dr. Wills. She recently went to [facility] to do an endoscopic ultrasound of her pancreas. According to her, the results were negative. She is also scheduled for liver MRI in the next 1-2 weeks. PAST MEDICAL HISTORY: Negative stress test on December 06. PAST SURGICAL HISTORY: Include Lap-Band in 2004, hysterectomy at age 22, laparoscopic cholecystectomy. FAMILY HISTORY: Father with heart disease, lung disease. Mother with heart disease, ovarian cancer. Paternal grandmother with asthma and maternal grandmother with breast cancer. SOCIAL HISTORY: She is . She does have children. She does not smoke and does not drink. MEDICATIONS: 1. Singulair 10 daily. 2. Metoprolol 25 daily. 3. Dexilant 60 daily. 4. Lexapro 10 daily. 5. Alprazolam 0.5 t.i.d. ALLERGIES: METRONIDAZOLE WHICH CAUSES NAUSEA. REVIEW OF SYSTEMS: As above. PHYSICAL EXAMINATION: VITAL SIGNS: Blood pressure 137/79, temp 98.3, pulse ox 96, pulse 79. GENERAL: No acute distress at this time. She is feeling much better. HEENT: Clear. NECK: Supple. HEART: Regular rate and rhythm. LUNGS: Clear. ABDOMEN: Soft. Mild diffuse tenderness, worse in the epigastric area. EXTREMITIES: With no edema. LABORATORY DATA: White count 10.3, H and H 13 and 42. Electrolytes normal. Creatinine 0.81, BUN 14, glucose 104, lipase 256. CT abdomen shows acute pancreatitis, similar to the prior episode. No other pathology noted. The patient does have bilateral adrenal adenomas noted. ASSESSMENT: 1. Recurrent acute pancreatitis, presently being worked up further by Dr. Wills. MRI of the liver scheduled in the near future. Recently returned from [facility] with an endoscopic ultrasound. 2. Dehydration. 3. Bilateral adrenal adenomas. 4. Morbid obesity. PLAN: 1. Pain control with morphine 4 mg q.4 p.r.n. 2. N.p.o. except ice chips. 3. Hydrate. 4. Zofran p.r.n. 5. Serial CBC, comprehensive, and lipase. Job ID: [id number]
[2018-09-28] MEDS: Morphine 4 MG/ML VIAL SLOW IVP PRN ×2 (00:06→06:00)
[2018-09-28] MEDS: Acetaminophen 325 MG TAB PO PRN ×3 (08:03→18:44)
[2018-09-28] MEDS: Famotidine/PF 20 mg/2ml Vial SLOW IVP SCH ×2 (08:04→19:55)
[2018-09-28] MEDS: Enoxaparin Sodium 40 MG/0.4 ML SYRINGE SC SCH (08:04)
[2018-09-28 08:20] LABS: #Eosinphils 0.2 thou/uL (0.0-0.7); #Lymphocytes 0.8 thou/uL (1.20-3.40); #Neutrophils 7.4 thou/uL (1.40-6.50); %Basophils 0.2 % (0.0-1.0); %Eosinophils 1.7 % (0.0-10.0); %Monocytes 10.5 % (0.0-10.0); %Neutrophils 79.6 % (42.0-75.0); Hemoglobin 11.7 g/dL (12.0-16.0); Mean Corpuscular HGB CONC 32.9 g/dL (32.0-36.0); Mean Corpuscular Hemoglobin 29.6 pg (27.0-31.0); Mean Platelet Volume 9.9 fL (7.4-10.4); Platelet Count 211 thou/uL (130-400); Red Blood Cell (RBC) Count 3.96 mill/uL (4.20-5.40); White Blood Cell (WBC) Count 9.4 thou/uL (4.8-10.8)
[2018-09-28 08:30] LABS: ALT (SGPT) 13 U/L (8-55); AST (SGOT) 12 U/L (5-34); Albumin 3.3 g/dL (3.5-5.0); Alkaline Phosphatase 63 U/L (40-150); Anion Gap 10 mmol/L (10-20); BUN (Urea Nitrogen) 9 mg/dL (9.8-20.1); Bilirubin, Total 0.7 mg/dL (0.2-1.2); Calc. Creatinine Clearance 0 mL/min (70-130); Calcium 8.9 mg/dL (7.8-10.44); Carbon Dioxide 27 mmol/L (22-29); Chloride 102 mmol/L (98-107); Estimated GFR-MDRD 79; Globulin 2.7 g/dL (2.4-3.5); Glucose 98 mg/dL (70-105); Lipase 73 U/L (8-78); Potassium 3.9 mmol/L (3.5-5.1); Sodium 135 mmol/L (136-145)
[2018-09-28] MEDS: Sodium Chloride 0.9% 1,000 ML IV SCH ×3 (12:36→19:56)
--- NOTE | 2018-09-28 17:27 | CON ---
DATE OF CONSULTATION: 09/28/2018 SUBJECTIVE: The patient is feeling much better. Having minimal abdominal pain. Remains n.p.o. at this time. OBJECTIVE: VITAL SIGNS: Temperature 98.3, pulse 72, respirations 18, pulse ox 96, blood pressure 106/69. HEART: Regular rate and rhythm. LUNGS: Clear. ABDOMEN: Soft. Decreased bowel sounds. LABORATORY DATA: Sodium 135, potassium 3.9, creatinine 0.75, BUN 9. White count 9.4, hemoglobin and hematocrit, 11 and 35. ASSESSMENT: 1. Acute pancreatitis. 2. Dehydration. 3. Bilateral adrenal adenoma. 4. Morbid obesity. PLAN: 1. Advance diet to clear liquids and as tolerated. 2. If the patient does well, can possibly be discharged this evening or tomorrow morning. Job ID: [id number]
[2018-09-28] MEDS ORDERED: Escitalopram Oxalate 10 mg Tablet PO SCH (21:00)
[2018-09-28] MEDS ORDERED: Montelukast Sodium 10 mg Tablet PO SCH (21:00)
[2018-09-28] MEDS: ALPRAZolam 0.5 MG TAB PO SCH (21:33)
[2018-09-29 07:47] LABS: #Eosinphils 0.2 thou/uL (0.0-0.7); #Monocytes 0.5 thou/uL (0.11-0.59); #Neutrophils 4.5 thou/uL (1.40-6.50); %Basophils 0.1 % (0.0-1.0); %Eosinophils 3.4 % (0.0-10.0); %Lymphocytes 15.2 % (21.0-51.0); %Monocytes 8.6 % (0.0-10.0); %Neutrophils 72.7 % (42.0-75.0); Hemoglobin 11.9 g/dL (12.0-16.0); Mean Corpuscular HGB CONC 32.6 g/dL (32.0-36.0); Mean Corpuscular Hemoglobin 29.5 pg (27.0-31.0); Mean Corpuscular Volume 90.3 fL (78.0-98.0); Platelet Count 203 thou/uL (130-400); Red Blood Cell (RBC) Count 4.02 mill/uL (4.20-5.40); White Blood Cell (WBC) Count 6.3 thou/uL (4.8-10.8)
[2018-09-29] MEDS: Enoxaparin Sodium 40 MG/0.4 ML SYRINGE SC SCH (07:49)
[2018-09-29] MEDS: ALPRAZolam 0.5 MG TAB PO SCH (07:49)
[2018-09-29] MEDS: Famotidine/PF 20 mg/2ml Vial SLOW IVP SCH (07:49)
[2018-09-29] MEDS: Sodium Chloride 0.9% 1,000 ML IV SCH (07:53)
[2018-09-29 07:59] LABS: Anion Gap 11 mmol/L (10-20); BUN (Urea Nitrogen) 7 mg/dL (9.8-20.1); Calc. Creatinine Clearance 0 mL/min (70-130); Calcium 9.3 mg/dL (7.8-10.44); Carbon Dioxide 26 mmol/L (22-29); Chloride 106 mmol/L (98-107); Estimated GFR-MDRD 84; Glucose 62 mg/dL (70-105); Potassium 3.4 mmol/L (3.5-5.1); Sodium 140 mmol/L (136-145)
[2018-09-29 08:33] VITALS: BP 148/79; TEMP 98
--- NOTE | 2018-09-29 13:44 | DIS ---
DATE OF ADMISSION: 09/27/2018 DATE OF DISCHARGE: 09/29/2018 DISCHARGE DIAGNOSES: 1. Recurrent acute pancreatitis. 2. Dehydration. 3. Bilateral adrenal adenomas. 4. Morbid obesity. DISCHARGE MEDICATIONS: 1. Singulair 10 daily. 2. Metoprolol 25 daily. 3. Dexilant 60 daily. 4. Lexapro 10 daily. 5. Alprazolam 0.5 t.i.d. 6. Zofran 4 mg p.o. q.6 p.r.n. BRIEF HISTORY: A 58-year-old white female, who presents with recurrent acute pancreatitis with abdominal pain. The patient was doing great until 2 days prior. She was doing yard work. The following day, she developed acute onset of abdominal pain radiating to her back. This was associated with nausea, vomiting, and decreased appetite. She attempted to work through this with [email or web address], but was unsuccessful. She continued to get worse and presented to the emergency room. She is followed by Dr. Wills. She recently had an ultrasound done at [facility] and endoscopic ultrasound of her pancreas. HOSPITAL COURSE: The patient was given IV pain medications. She was placed in p.o. Within 24 hours, she improved dramatically. Her lipase returned to normal. This morning, she is doing well, tolerating the regular diet and ready to go home. Job ID: [id number]
== END 2018-09-29 11:50 | disposition home or self-care (01) ==
LOC: SCSER 09:51 → T4-A 13:59
PROVIDERS: ADMIT Family Medicine; ATTEND Family Medicine
DX: K85.90 Acute pancreatitis without necrosis or infection, unspecified (principal); E86.0 Dehydration; D35.02 Benign neoplasm of left adrenal gland; D35.01 Benign neoplasm of right adrenal gland; E66.01 Morbid (severe) obesity due to excess calories; Z98.84 Bariatric surgery status; Z90.710 Acquired absence of both cervix and uterus; Z90.49 Acquired absence of other specified parts of digestive tract; Z88.8 Allergy status to other drugs, medicaments and biological substances; Z79.899 Other long term (current) drug therapy
CPT/HCPCS: 36415; 74177; 80048; 80053; 83605; 83690; 84484; 85025; 93005; 96361; 96372; 96374; 96375; 96376; 99406; G0378; J1650; J2270; J2405; Q9967; S0028

== ENCOUNTER 2018-10-02 09:41 | Outpatient (CLI) | payer BC ==
--- NOTE | 2018-10-02 12:08 | MRI ---
MRI Abdomen W WO Con History: [K 86.1 recurrent pancreatitis] Comparison: CT abdomen and pelvis October 27, 2018 Findings: Multiplanar multisequence MRI of the abdomen was performed prior to and after the intraveno us administration of contrast. 3-D rendering is provided for MRCP. The hepatic enhancement is normal. No intrahepatic or extrahepatic biliary dilatation. No dilatation of the pancreatic duct. Normal appearance of the main pancreatic duct. There is small volume fluid surrounding the pancreatic body and tail. Normal rotation of the pancreas . No annular pancreas. No anomalous insertion of the main pancreatic duct into the minor papilla. Nor mal conventional pancreatic duct anatomy. Adrenal glands are normal. No hydronephrosis. There is a focal area of susceptibility along the dorsa l aspect of the gastric antrum may reflect a small diverticulum or susceptibility from prior surgery. No areas of nonenhancement of the pancreatic parenchyma. The background marrow signal of the spine is normal. Impression: 1. Acute edematous pancreatitis without necrosis. 2. Normal conventional pancreatic duct anatomy. 3. No intrahepatic or extra hepatic biliary dilatation. 4. Small bilateral adrenal adenomas.
== END 2018-10-02 09:42 | disposition home or self-care (01) ==
LOC: BICMRI 09:41
PROVIDERS: ATTEND Internal Medicine Gastroenterology
DX: K86.1 Other chronic pancreatitis (principal); K85.90 Acute pancreatitis without necrosis or infection, unspecified; D35.02 Benign neoplasm of left adrenal gland; D35.01 Benign neoplasm of right adrenal gland
CPT/HCPCS: 74183; 82565

== ENCOUNTER 2021-10-19 10:57 | Outpatient (CLI) | payer BC, SELFPAY ==
[2021-10-19 21:45] LABS: SARS-CoV-2 PCR by NAA Not Detected (NotDetected)
== END 2021-10-19 10:58 | disposition home or self-care (01) ==
LOC: LABBT 10:57
PROVIDERS: ATTEND Internal Medicine Gastroenterology
DX: Z20.822 Contact with and (suspected) exposure to COVID-19 (principal)
CPT/HCPCS: U0003; U0005

== ENCOUNTER 2021-10-24 08:48 | Day surgery (SDC) | payer OTHER ==
[2021-10-20 12:45] VITALS: BMI 46.7
[2021-10-24 10:24] LABS: #Eosinphils 0.2 thou/uL (0.0-0.7); #Lymphocytes 1.4 thou/uL (1.20-3.40); #Monocytes 0.4 thou/uL (0.11-0.59); #Neutrophils 3.1 thou/uL (1.40-6.50); %Basophils 0.3 % (0.0-1.0); %Lymphocytes 26.8 % (21.0-51.0); %Monocytes 8.1 % (0.0-10.0); %Neutrophils 61.8 % (42.0-75.0); Hemoglobin 13.5 g/dL (12.0-16.0); Mean Corpuscular HGB CONC 34.3 g/dL (32.0-36.0); Mean Corpuscular Hemoglobin 30.9 pg (27.0-31.0); Mean Corpuscular Volume 90.1 fL (78.0-98.0); Mean Platelet Volume 9.3 fL (7.4-10.4); Platelet Count 225 thou/uL (130-400); RBC Distribution Width 12.4 % (11.5-14.5); Red Blood Cell (RBC) Count 4.35 mill/uL (4.20-5.40)
[2021-10-24 10:47] LABS: ALT (SGPT) 26 U/L (8-55); AST (SGOT) 24 U/L (5-34); Albumin 4.2 g/dL (3.4-4.8); Alkaline Phosphatase 67 U/L (40-110); Anion Gap 15 mmol/L (10-20); BUN (Urea Nitrogen) 14 mg/dL (9.8-20.1); Bilirubin, Total 0.9 mg/dL (0.2-1.2); Calc. Creatinine Clearance 144 mL/min (70-130); Calcium 9.5 mg/dL (7.8-10.44); Carbon Dioxide 24 mmol/L (23-31); Chloride 101 mmol/L (98-107); Globulin 3.2 g/dL (2.4-3.5); Glucose 99 mg/dL (80-115); Iron 77 ug/dL (50-170); Iron Binding Capacity, Total 330 mcg/dL (265-497); Potassium 3.7 mmol/L (3.5-5.1); Protein, Total 7.4 g/dL (5.8-8.1); Sodium 136 mmol/L (136-145)
[2021-10-24] MEDS ORDERED: PROPOFOL 200 MG/20 ML VIAL ONE (11:00)
[2021-10-24] MEDS ORDERED: Lidocaine 1% PF 5 ML VIAL ONE (11:00)
[2021-10-24 11:13] LABS: Ferritin 114.16 ng/mL (10-291)
== END 2021-10-24 12:17 | disposition home or self-care (01) ==
LOC: SDC 08:48
PROVIDERS: ATTEND Internal Medicine Gastroenterology
PROC: 0DBH8ZX Excision of Cecum, Via Natural or Artificial Opening Endoscopic, Diagnostic (ICD-10-PCS; principal; 2021-10-24)
PROC: 0DBP8ZX Excision of Rectum, Via Natural or Artificial Opening Endoscopic, Diagnostic (ICD-10-PCS; principal; 2021-10-24)
PROC: 0DBM8ZX Excision of Descending Colon, Via Natural or Artificial Opening Endoscopic, Diagnostic (ICD-10-PCS; principal; 2021-10-24)
DX: D12.0 Benign neoplasm of cecum (principal); K62.1 Rectal polyp; K64.8 Other hemorrhoids; K52.9 Noninfective gastroenteritis and colitis, unspecified; K21.9 Gastro-esophageal reflux disease without esophagitis; I10 Essential (primary) hypertension; E66.9 Obesity, unspecified; Z68.42 Body mass index [BMI] 45.0-49.9, adult; Z87.891 Personal history of nicotine dependence; Z79.899 Other long term (current) drug therapy
CPT/HCPCS: 80053; 82607; 82728; 83540; 83550; 85025; 88305; J2704